=== PATIENT | female | born 1985 | race Caucasian/White ===

== ENCOUNTER 2016-05-08 22:26 | Emergency (ER) | payer MEDICAID | END 2016-05-09 02:12 | disposition home or self-care (01) | LOC: D.ER 22:26 | DX: R19.7 Diarrhea, unspecified (principal); K52.9 Noninfective gastroenteritis and colitis, unspecified; F17.200 Nicotine dependence, unspecified, uncomplicated ==

== ENCOUNTER 2019-01-29 17:58 | Emergency (ER) | payer MEDICAID ==
[~2019-01-29] VITALS: Ht 157.5 cm; Wt 65.9 kg
[2019-01-29 18:00] VITALS: Ht 157.5 cm; Wt 65.9 kg
[2019-01-29 19:02] LABS: BASOPHILS 0.1 % (0-2); EOSINOPHILS 0.1 % (0-7); HEMATOCRIT 39.8 % (36.0-48.0); HEMOGLOBIN 13.4 g/dL (12-16); IMMATURE GRANULOCYTES 0.4 % (0-5); LYMPHOCYTES 13.8 % (15-50); MCH 29.8 pg (26.0-34.0); MCHC 33.7 g/dL (31.0-37.0); MCV 88.6 fL (80.0-100.0); MEAN PLATELET VOLUME 10.6 fL (7.4-10.4); MONOCYTES 6.8 % (2-11); NEUTROPHILS 78.8 % (40-80); PLATELET COUNT 307 10x3/uL (130-400); RBC 4.49 10x6/uL (4.00-5.40); RDW 14.9 % (11.5-14.5); WBC 19.1 10x3/uL (4.8-10.8)
[2019-01-29 19:23] LABS: ALBUMIN 3.7 g/dL (3.4-5.0); ALKALINE PHOSPHATASE 98 U/L (46-116); ALT (SGPT) 21 U/L (10-68); BILIRUBIN - TOTAL 0.74 mg/dL (0.2-1.3); CALC OSMOLALITY 273 mosm/kg (275-300); CALCIUM 8.8 mg/dL (8.5-10.1); CHLORIDE - SERUM 102 mmol/L (98-107); CREATININE - SERUM 0.8 mg/dL (0.6-1.3); GLUCOSE 87 mg/dL (74-106); PROTEIN - SERUM 7.9 g/dL (6.4-8.2); SODIUM 138 mmol/L (136-145); UREA NITROGEN 9 mg/dL (7-18); eGFR NON AFRICAN AMERICAN 89 mL/min (90-120)
[2019-01-29 19:24] LABS: HCG SERUM NEGATIVE (NEGATIVE)
[2019-01-29 19:28] LABS: AMYLASE - SERUM 29 U/L (25-115); LIPASE 57 U/L (73-393)
[2019-01-29 19:38] LABS: TROPONIN-I < 0.017 ng/mL (0.000-0.060)
[2019-01-29 21:52] LABS: APPEARANCE CLEAR (CLEAR); BILIRUBIN NEGATIVE (NEGATIVE); COLOR YELLOW (YELLOW); GLUCOSE NEGATIVE (NEGATIVE); KETONE NEGATIVE (NEGATIVE); NITRITE NEGATIVE (NEGATIVE); PROTEIN NEGATIVE (NEGATIVE); UROBILINOGEN NORMAL (NORMAL)
[2019-01-29 21:54] LABS: BACTERIA FEW /hpf (NEGATIVE); EPITHELIAL CELLS 0-5 /hpf (0-5); RED CELLS - URINE 0-5 /hpf (0-5); WHITE CELLS - URINE 0-5 /hpf (NEGATIVE)
[2019-01-29] MEDS ORDERED: CIPRO500 MG PO (21:55)
[2019-01-29] MEDS ORDERED: PHENERGAN25 M1 PO (21:55)
[2019-01-29] MEDS ORDERED: FLAGYL500 MG PO (21:55)
[2019-01-29] MEDS ORDERED: ULTRAM50 MG PO (21:57)
[2019-01-29 22:51] VITALS: BP 119/58
== END 2019-01-29 22:40 | disposition home or self-care (01) ==
LOC: D.ER 17:58
PROVIDERS: Family Medicine
DX: N30.90 Cystitis, unspecified without hematuria (principal); K52.9 Noninfective gastroenteritis and colitis, unspecified; F17.210 Nicotine dependence, cigarettes, uncomplicated

== ENCOUNTER 2020-02-13 17:03 | Emergency (ER) | payer MEDICAID ==
[~2020-02-13] VITALS: Ht 157.5 cm; Wt 77.3 kg
[~2020-02-13 17:03] MED LIST: CIPRO500 MG PO; FLAGYL500 MG PO; PHENERGAN25 M1 PO; ULTRAM50 MG PO
[2020-02-13 17:33] VITALS: Ht 157.5 cm; Wt 77.3 kg
[2020-02-13 19:30] VITALS: BP 118/70
[2020-02-13] MEDS ORDERED: TORADOL10 MG PO (19:52)
== END 2020-02-13 19:30 | disposition home or self-care (01) ==
LOC: D.ER 17:03
DX: S30.810A Abrasion of lower back and pelvis, initial encounter (principal); S80.812A Abrasion, left lower leg, initial encounter; V03.99XA Pedestrian with other conveyance injured in collision with car, pick-up truck or van, unspecified whether traffic or nontraffic accident, initial encounter; Y93.9 Activity, unspecified; Y92.9 Unspecified place or not applicable